=== PATIENT | male | born 1955 | race Caucasian/White ===

== ENCOUNTER → 2017-11-03 13:22 | Outpatient (CLI) | payer MEDICARE, SELFPAY | PROVIDERS: Family Provider Student in an Organized Health Care Education/Training Program; PCP Student in an Organized Health Care Education/Training Program; Visit Provider Anesthesiology | DX: M54.12 Radiculopathy, cervical region (principal) | CPT/HCPCS: 72125 ==

== ENCOUNTER 2018-06-04 12:55 | Emergency (ER) | payer MEDICARE, SELFPAY ==
[2018-06-04 13:00] VITALS: BP 148/99; PULSE 127; RESP 12; TEMP 37.4; O2SAT 94; BMI 45.8
[2018-06-04 13:05] VITALS: O2SAT 98
--- NOTE | 2018-06-04 13:55 | EKG12_ITS ---
Test Reason : CP Blood Pressure : / mmHG Vent. Rate : 123 BPM Atrial Rate : 123 BPM P-R Int : 168 ms QRS Dur : 098 ms QT Int : 302 ms P-R-T Axes : 027 -42 062 degrees QTc Int : 432 ms Sinus tachycardia Left axis deviation Left ventricular hypertrophy Nonspecific ST Segment Abnormality Abnormal ECG Confirmed by CONCHITA WEISS, LAMONTE ([id number]), editor publications SILVIO CARDENAS ([id number]) on 06/07/2018 1:43:31 PM Referred By: TANYA Confirmed By:LAMONTE ARANGO MD
--- NOTE | 2018-06-04 13:56 | ED.VIS.GEN ---
History of Present Illness Chief Complaint: Chest Pain Informant: Patient Onset: Days - 2 Context: Gradual Onset Timing: Continuous Quality: heavy Location: right chest, radiates into right upper back Current Severity: Moderate Maximum Severity: Moderate Worsened by: nothing in particular; nonpleuritic, no worse w/ movement or exertion Relieved by: nothing Associated Symptoms: see below Narrative: Patient states he has had these symptoms of right upper chest discomfort into his back off and on since October of last year which is over 6 months. More constant for the past 2 days. This morning he has noticed that his chronic sciatica pain is significantly worse, and his spinal cord stimulator is not functioning properly. His stimulator is implanted in his low back and has been there for years, and has helped to keep his sciatica discomfort tolerable. Last night he has a remote control that he used to check it and it was working fine. This morning he notices sciatica pain was a lot worse especially on the right, so he checked it again and there was a picture of a doctor and it was advising him to have it evaluated immediately. He states the discomfort in his right upper back, far away from his stimulator, felt burning and he was wondering if it is related to his stimulator. He states his heart rate is always around 60 and it has been fast. His blood pressure is up and it is usually not. He denies any palpitations, loss of consciousness, shortness of breath. No leg pain or swelling. No history of DVT or PE. No recent hospitalization, surgery, although he has had many surgeries in the past. No recent long travel or immobilization. - Past Medical History (1) Sciatica Status: Chronic (2) Chronic low back pain Status: Chronic Past Medical History - Allergies and Home Meds Allergies/Adverse Reactions: Allergies acetaminophen [From Tylenol] Allergy (Verified 06/04/18 13:00) Shortness of breath adhesive tape Allergy (Verified 06/04/18 13:00) Rash clarithromycin Allergy (Verified 06/04/18 13:00) Rash codeine Allergy (Verified 06/04/18 13:00) Anaphylaxis hydrocodone [From Vicodin] Allergy (Verified 06/04/18 13:00) Anaphylaxis levofloxacin [From Levaquin] Allergy (Verified 06/04/18 13:00) Rash sulfadiazine Allergy (Verified 06/04/18 13:00) Shortness of breath celecoxib [From Celebrex] Adverse Reaction (Verified 06/04/18 13:00) Upset Stomach Primary Care Physician: Sherman Paiz DO [Primary Care Provider] - Surgical History: - - back -- many. lumbar spinal cord stimulator placement. Smoking Status: Never smoker Review of Systems General: Denies: Chills, Fever, Sweats Eyes: Denies: Visual changes - bilaterally, Diplopia ENT: Denies: Rhinorrhea, Sore throat Cardiovascular: Reports: Chest pain. Denies: Palpitations, Heart racing Respiratory: Reports: Dyspnea - at times, wheezing, Cough. Denies: Sputum Gastrointestinal: Denies: Abdominal pain, Nausea, Vomiting, Diarrhea, Melena, Hematochezia Genitourinary: Denies: Dysuria, Hematuria, Frequency Musculoskeletal: Reports: Back pain, Extremity Pain - chronic BLE. Denies: Neck pain, Swelling Skin: Denies: Rash, Wounds Neurological: Denies: Headache, Weakness, Numbness Physical Exam Vital Signs/Narrative: Vital Signs Temp Pulse Resp BP Pulse Ox 06/04/18 13:05 98 06/04/18 13:00 99.4 F H 127 H 12 148/99 H 94 Inital Vital Signs reviewed: Yes General: Well nourished, Well developed, No Acute Distress Head: Normocephalic, Atraumatic Eyes: Perrl, EOMI ENT: Moist mucous membranes, No rhinorrhea Neck: Supple, Nontender Cardiovascular: Regular rate, Regular rhythm, No murmurs, Normal S1, Normal S2, Tachycardia Respiratory: No distress, CTA bilaterally, Chest nontender, Diminished - throughout, symmetric Abdomen: Soft, Nontender, Nondistended, Normal bowel sounds Back: Nontender, Normal Inspection, - - nontender over left low back stimulator area; no cellulitis present. multiple well-healed surgical scars.. Negative for: Spinal tenderness Extremities: Nontender, No edema Skin: Normal color, No rash, No Trauma Neurological: Alert, Oriented x3, Cranial nerves II-XII grossly intact, Normal Strength, Normal Sensation Psychological: Normal affect, Normal Mood Diagnostic/Tx/Re-eval Impressions Chest X-Ray 06/04/18 14:00 IMPRESSION: Mild cardiomegaly. Electronically Signed: Naveen Quevedo, at 14:22 EDT , Service support , 06/04/18 14:00 Chest 1 View (Portable) [RAD] Stat Laboratory Results 06/04/18 06/04/18 06/04/18 13:20 13:20 13:20 WBC 7.1 RBC 4.70 Hgb 13.6 Hct 41.1 MCV 87.4 MCH 28.9 MCHC 33.1 RDW 13.9 RDW Differential 44.2 H Plt Count 286 MPV 10.2 Immature Gran % (Auto) 0.600 Neut % (Auto) 68.3 Lymph % (Auto) 18.9 L [place] % (Auto) 11.3 H Eos % (Auto) 0.6 Baso % (Auto) 0.3 Absolute Neuts (auto) 4.9 Absolute Lymphs (auto) 1.35 Total Counted Not Reportable D-Dimer Quant (PE/DVT) 0.45 Sodium 140 Potassium 3.2 L Chloride 105 Carbon Dioxide 25.0 Anion Gap 10 BUN 19 H Creatinine 1.28 Estim Creat Clear Calc 55.38 Est GFR (MDRD) Af Amer 74 Est GFR (MDRD) Non-Af 61 BUN/Creatinine Ratio 14.8 Glucose 122 H Lactic Acid Calcium 9.9 Troponin I < 0.015 06/04/18 14:20 WBC RBC Hgb Hct MCV MCH MCHC RDW RDW Differential Plt Count MPV Immature Gran % (Auto) Neut % (Auto) Lymph % (Auto) [place] % (Auto) Eos % (Auto) Baso % (Auto) Absolute Neuts (auto) Absolute Lymphs (auto) Total Counted D-Dimer Quant (PE/DVT) Sodium Potassium Chloride Carbon Dioxide Anion Gap BUN Creatinine Estim Creat Clear Calc Est GFR (MDRD) Af Amer Est GFR (MDRD) Non-Af BUN/Creatinine Ratio Glucose Lactic Acid 1.1 Calcium Troponin I - Rhythm Strip Rhythm Strip: Sinus Tach Rate: 120 Ectopy: None - EKG Initial EKG Interpretation: No Acute Injury Pattern, Sinus Tachycardia, - - LAD Prior: No Prior - Medical Decision Making Labs are reassuring, showing normal troponin and negative d-dimer, ruling out PE as etiology for his chest discomfort today. Chest x-ray shows no acute infiltrates or disease. With fluids and Toradol he had some mild improvement in his discomfort and his tachycardia improved. His EKG shows a left axis but we do not have an old EKG to compare to. With a negative troponin and 2 days of pain, at least, I do not think he needs to be admitted to rule out acute coronary syndrome. Furthermore, his symptoms are atypical for being cardiac. He is a very poor historian and has trouble answering questions directly, eventually tells me that he has had a cough for 2-3 months, he saw a urgent care a couple months ago and was not put on antibiotic but the breathing treatment helped. He states occasionally he is wheezing and feels a little like that now, I gave him an albuterol treatment, he states that helped his breathing, which was not bad to begin with, he still has a chest discomfort. He states he feels lumps under the skin in this area and those feel like the etiology of his discomfort. When he bends forward he can feel the more prominently. When asked if he has COPD, he states he thinks he does but he is not sure. He has an albuterol inhaler at home that he has been using on occasion, as he did yesterday which helped his dyspnea when he does it. I think it is reasonable to send him home on an antibiotic to cover for atypicals, short course of prednisone, and prescribed a new albuterol inhaler. I discussed his spinal stimulator with Dr. Quinn, he advises me to reassure the patient and advised him to call for an appointment time to follow-up on Thursday for further evaluation in the office and to turn it off for now. I relayed this to the patient. He is comfortable with this overall plan of following up with his primary care doctor and his pain management doctor. ED Disposition - Plan for ED Patient: Disposition: Home or Assisted Living Diagnosis: Lower respiratory infection, Malfunction of spinal cord stimulator, Atypical chest pain, Chronic low back pain Instructions: ED Chest Pain NonCardiac, ED COPD Flare Prescriptions: Albuterol Inhaler [Ventolin Hfa] 1 - 2 puff INHALATION Q4H PRN PRN #1 inhaler PRN Reason: Wheezing Azithromycin [Zithromax Z-Umair] 250 mg PO UD #1 box Prednisone [Deltasone] 40 mg PO DAILY #10 tab Referrals: Sherman Paiz DO [Primary Care Provider] - 1 Week if not improving Jesús Quinn MD [STAFF PHYSICIAN] - 06/07/18 (call for appt time)
[2018-06-04 14:00] VITALS: BP 138/102; PULSE 118; RESP 20; O2SAT 97
--- NOTE | 2018-06-04 14:00 | RAD_ITS ---
STUDY: X-RAY CHEST REASON FOR EXAM: Male, 62 years old. Chest pain. TECHNIQUE: Single AP portable view of the chest. COMPARISON: None. FINDINGS: EKG electrodes are seen. Electrodes from a spinal stimulator are seen with the tip in the region of the T7-T8 vertebral level. The lungs are clear and expanded. There is no demonstrated pleural abnormality. There is mild cardiac enlargement. Normal mediastinum and cliff. Normal visualized pulmonary arteries. There is atherosclerotic tortuosity of the aortic arch and descending thoracic aorta. Normal visualized thoracic spine. Normal visualized ribs, clavicles, and shoulders. There is no demonstrated abnormality of the visualized soft tissue structures of the upper abdomen. RAD/Chest 1 View (Portable) IMPRESSION: Mild cardiomegaly. Electronically Signed: Naveen Quevedo, at 14:22 EDT , Service support ,
[2018-06-04 14:24] LABS: Absolute Lymphocyte Count 1.35 X10^3/ul (0.83-4.51); Absolute Neutrophil Count 4.9 X10^3/uL (2.0-7.7); Basophil# 0.02 X10^3/uL; Basophil% 0.3 % (0-1); Eosinophil# 0.04 X10^3/uL; Eosinophils% 0.6 % (0-5); Hematocrit 41.1 % (40-54); Hemoglobin 13.6 g/dl (13.0-16.5); Lymphocyte # 1.35 X10^3/ul (4.0); Lymphocyte % 18.9 % (19-41); Mean Corp Hgb Conc 33.1 g/gl (32-36); Mean Corpuscular Hgb 28.9 pg (27.0-32.0); Mean Corpuscular Volume 87.4 fL (80-94); Mean Platelet Vol. 10.2 fl (6.2-12.0); Monocyte# 0.81 X10^3/uL; Monocyte% 11.3 % (0-10); Neutrophil # 4.88 X10^3/uL (2.7-7.7); Neutrophil % 68.3 % (47-70); Platelet Count 286 K/mm3 (150-450); RBC Distribution Width CV 13.9 % (11.6-14.6); RBC Distribution Width SD 44.2 fl (35.1-43.9); White Blood Count 7.1 K/mm3 (4.4-11.0)
[2018-06-04 14:26] LABS: POSITIVE COUNT NO; POSITIVE DIFFERENTIAL NO; POSITIVE MORPHOLOGY NO
[2018-06-04 14:34] LABS: D-Dimer Quantitative (DVT/PE) 0.45 FEU/ug/m (0.27-0.49)
[2018-06-04] MEDS: 0.9% Normal Saline 1,000 ML 999 ML IV (14:34)
[2018-06-04] MEDS: Ketorolac 15 MG/ML Vial IV (14:34)
[2018-06-04 14:40] LABS: BUN 19 mg/dL (7-18); Creatinine, Serum 1.28 mg/dL (0.70-1.30); Glucose 122 mg/dL (74-106)
[2018-06-04 14:41] LABS: Anion Gap 10 (5-15); BUN/Creat Ratio 14.8 RATIO (10-20); Calcium,Total 9.9 mg/dL (8.5-10.1); Chloride 105 mmol/L (98-107); EST Glomerular Filtration Rate 61 mL/min (>60); Est Glom Filt Rate - Afr Amer 74 mL/min (>60); Estimated Creatinine Clearance 55.38 ml/min; Potassium 3.2 mmol/L (3.5-5.1); Sodium Level 140 mmol/L (136-145)
[2018-06-04 14:57] LABS: Lactic Acid 1.1 mmol/L (0.4-2.0)
[2018-06-04 15:00] VITALS: BP 161/106; PULSE 113; RESP 18; O2SAT 98
[2018-06-04 15:47] VITALS: PULSE 108; RESP 16
[2018-06-04] MEDS: Albuterol 2.5 MG/3 ML VIAL.NEB. INHALATION (15:47)
[2018-06-04 16:31] VITALS: BP 149/93; PULSE 107; RESP 16; RESP 18; O2SAT 96
== END 2018-06-04 16:33 | disposition home or self-care (01) ==
PROVIDERS: Emergency Provider Emergency Medicine; Family Provider Student in an Organized Health Care Education/Training Program; PCP Student in an Organized Health Care Education/Training Program
DX: J22 Unspecified acute lower respiratory infection (principal); T85.113A Breakdown (mechanical) of implanted electronic neurostimulator, generator, initial encounter; Y83.8 Other surgical procedures as the cause of abnormal reaction of the patient, or of later complication, without mention of misadventure at the time of the procedure; R07.89 Other chest pain; M54.5 Low back pain; G89.29 Other chronic pain
CPT/HCPCS: 71045; 80048; 83605; 84484; 85025; 85379; 87040; 93005; 94640; 96361; 96374; 99285; J7030; A4216

== ENCOUNTER 2018-08-06 09:58 | Day surgery (SDC) | payer OTHER, SELFPAY ==
[2018-08-06 10:17] VITALS: BP 159/83; PULSE 61; RESP 16; TEMP 37.1; O2SAT 98; BMI 43.7
[2018-08-06 10:38] LABS: Potassium 3.8 mmol/L (3.5-5.1)
--- NOTE | 2018-08-06 11:25 | RAD_ITS ---
PROCEDURE: Spinal cord stimulator battery revision. DATE OF EXAMINATION: August 06, 2018 INDICATION: Male, 62 years old. Chronic back pain. FLUOROSCOPY TIME (if supplied): (0:06) minutes/seconds Single coned down view of the dorsal lumbar junction was obtained intraoperatively. RAD/Spine 1 View Any Level IMPRESSION: Intraoperative imaging provided for spinal cord stimulator battery revision. Electronically Signed: Naveen Quevedo, at 15:49 EDT , Service support ,
[2018-08-06] MEDS: Bupiv/Epi 0.25% 30 ML Vial (13:22)
[2018-08-06] MEDS: Cefazolin 2 GM in 0.9% Normal Saline 100 ML IV (13:49)
[2018-08-06 14:30] VITALS: BP 121/80; BP 159/83; PULSE 80; RESP 16; TEMP 36.5; O2SAT 97
[2018-08-06 14:35] VITALS: BP 126/82; BP 159/83; PULSE 78; RESP 16; O2SAT 97
[2018-08-06 14:40] VITALS: BP 135/82; BP 159/83; PULSE 74; RESP 16; O2SAT 100
[2018-08-06 14:45] VITALS: BP 145/93; BP 159/83; PULSE 73; RESP 16; TEMP 36.2; O2SAT 99
[2018-08-06 15:23] VITALS: BP 159/83
== END 2018-08-06 15:58 | disposition home or self-care (01) ==
LOC: SDC 10:01 → AC 10:03
PROVIDERS: Anesthesiology; Family Provider Student in an Organized Health Care Education/Training Program; PCP Student in an Organized Health Care Education/Training Program; Referring Provider Anesthesiology Pain Medicine; Visit Provider Anesthesiology Pain Medicine
PROC: (CPT 63688; principal; 2018-08-06 11:10)
DX: G89.29 Other chronic pain (principal); J45.909 Unspecified asthma, uncomplicated; I10 Essential (primary) hypertension
CPT/HCPCS: 63685; 36415; 72020; 76000; 84132; C1820; J7120

== ENCOUNTER 2021-02-15 08:50 | Emergency (ER) | payer MEDICARE, SELFPAY ==
[2021-02-15] VITALS (7 sets, daily range): BP systolic 143–195; BP diastolic 83–105; PULSE 81–89; RESP 12–16; TEMP 36.9; O2SAT 96–98; BMI 40.5
--- NOTE | 2021-02-15 08:57 | EKG12_ITS ---
Test Reason : CP Blood Pressure : / mmHG Vent. Rate : 086 BPM Atrial Rate : 086 BPM P-R Int : 166 ms QRS Dur : 108 ms QT Int : 348 ms P-R-T Axes : 044 -43 053 degrees QTc Int : 416 ms Normal sinus rhythm Left axis deviation Abnormal ECG Confirmed by TONYA WEISS, SCARLET ([id number]), international editorial producer SILVIO CARDENAS ([id number]) on 02/18/2021 9:38:28 AM Referred By: EVENS Confirmed By:SCARLET CASTANEDA MD
--- NOTE | 2021-02-15 08:57 | RAD_ITS ---
STUDY: X-RAY CHEST REASON FOR EXAM: Male, 65 years old. Chest pain TECHNIQUE: Single AP portable view of the chest. COMPARISON: Comparison is made with prior study 06/04/2018. FINDINGS: EKG electrodes are seen. The lungs are clear and expanded. There is no demonstrated pleural abnormality. There is borderline cardiomegaly. Normal mediastinum and cliff. Normal visualized pulmonary arteries. Normal visualized aortic arch and descending thoracic aorta. Normal visualized thoracic spine. Normal visualized ribs, clavicles, and shoulders. There is no demonstrated abnormality of the visualized soft tissue structures of the upper abdomen. RAD/Chest 1 View (Portable) IMPRESSION: Borderline cardiomegaly. Electronically Signed: Naveen Quevedo MD at 9:57 EST , Service support ,
[2021-02-15 09:04] LABS: Absolute Lymphocyte Count 1.23 X10^3/uL (0.83-4.51); Absolute Neutrophil Count 7.8 X10^3/uL (2.0-7.7); Basophil# 0.04 X10^3/uL; Basophil% 0.4 % (0-1); Eosinophil# 0.03 X10^3/uL; Eosinophils% 0.3 % (0-5); Hematocrit 43.5 % (40-54); Hemoglobin 14.1 g/dL (13.0-16.5); Lymphocyte # 1.23 X10^3/ul (0.83-4.51); Lymphocyte % 12.6 % (19-41); Mean Corp Hgb Conc 32.4 g/dL (32-36); Mean Corpuscular Hgb 28.3 pg (27.0-32.0); Mean Corpuscular Volume 87.3 fL (80-94); Monocyte# 0.63 X10^3/uL; Monocyte% 6.4 % (0-10); NRBC Flagged by Analyzer 0 % (0-5); Neutrophil # 7.79 X10^3/uL (2.7-7.7); Neutrophil % 79.8 % (47-70); Platelet Count 284 K/mm3 (150-450); RBC Distribution Width SD 44.9 fl (35.1-43.9); Red Blood Count 4.98 M/mm3 (4.6-6.2); White Blood Count 9.8 K/mm3 (4.4-11.0)
[2021-02-15 09:26] LABS: Anion Gap 8 (5-15); BUN 17 mg/dL (7-18); BUN/Creat Ratio 14.2 RATIO (10-20); Calcium,Total 9.9 mg/dL (8.5-10.1); Chloride 104 mmol/L (98-107); EST Glomerular Filtration Rate 65 mL/min (>60); Est Glom Filt Rate - Afr Amer 79 mL/min (>60); Estimated Creatinine Clearance 56.86 ml/min; Glucose 136 mg/dL (74-106); Potassium 3.3 mmol/L (3.5-5.1); Sodium Level 137 mmol/L (136-145); Troponin-I HS 14 pg/mL (3.0-78.0)
--- NOTE | 2021-02-15 09:41 | VDLE_ITS ---
Reason For Study: Pain RIGHT GSV is normal. CFV is compressible, spontaneous, phasic, competent and demonstrates normal augmentation. FV is compressible, spontaneous, phasic, competent and demonstrates normal augmentation. POP V is compressible, spontaneous, phasic, competent and demonstrates normal augmentation. T/P Trunk is compressible. PTV is compressible. RT PerV is compressible. Procedure This is a venous duplex using B-mode, color flow and spectral Doppler. Exam performed portable in ED. A preliminary report was called and/or faxed to Dr. Monsivais. VL/Venous Duplex US, Unilateral Interpretation Summary There is no evidence of right lower extremity deep vein thrombosis. Right great saphenous vein appears patent and compressible segmentally. Ordering Physician: Zackery Monsivais Referring Physician: Sherman Paiz Performed By: Dea Saunders, JOSAFAT, RVT
[2021-02-15] MEDS: Morphine 4 MG/ML Syringe IV (09:48)
--- NOTE | 2021-02-15 10:33 | ED.VIS.CHEST ---
HPI History of Present Illness Chief Complaint: Chest Pain Narrative Narrative: Patient presents for evaluation of his right leg pain which is an acute on chronic issue. He describes this as a 100 out of 100 pain. He denies any new trauma. He states he sees pain management is supposed to get a spinal stimulator. He states is not on any narcotics at home. Patient denies any new trauma. No DVT/PE risk factors. He notes that it is only painful in the anterior portion of the right thigh. He notes no swelling. He states that aside from this he started having chest pain about 6:00 this morning which feels like pressure. He denies lightheadedness or dizziness. He denies fever, cough, chills. He denies shortness of breath. PFSH PFSH Home Medications apple cider vinegar 300 mg PO DAILY 08/05/18 [History Last Taken Unknown] bee pollen 550 mg PO DAILY 08/05/18 [History Last Taken Unknown] calcium polycarbophil [Fiber Tabs] 625 mg PO DAILY 08/05/18 [History Last Taken Unknown] cranberry fruit 400 mg PO DAILY 08/05/18 [History Last Taken Unknown] ginseng 100 mg PO DAILY 08/05/18 [History Last Taken Unknown] hydrochlorothiazide 25 mg PO DAILY 08/05/18 [History Last Taken Unknown] losartan 100 mg PO DAILY 08/05/18 [History Last Taken 08/06/18 08:00] lycopene 10 mg PO DAILY 08/05/18 [History Last Taken Unknown] metoprolol succinate [Toprol Xl] 50 mg PO DAILY 08/05/18 [History Last Taken 08/06/18 08:00] tizanidine 4 mg PO DAILY 08/05/18 [History Last Taken Unknown] tramadol 50 mg PO Q6H PRN PRN 08/05/18 [History Last Taken Unknown] Allergy/AdvReac Type Severity Reaction Status Date / Time acetaminophen [From Tylenol] Allergy Shortness Verified 02/15/21 08:54 of breath adhesive tape Allergy Rash Verified 02/15/21 08:54 clarithromycin Allergy Rash Verified 02/15/21 08:54 codeine Allergy Anaphylaxis Verified 02/15/21 08:54 hydrocodone [From Vicodin] Allergy Anaphylaxis Verified 02/15/21 08:54 levofloxacin [From Levaquin] Allergy Rash Verified 02/15/21 08:54 sulfadiazine Allergy Shortness Verified 02/15/21 08:54 of breath celecoxib [From Celebrex] AdvReac Upset Verified 02/15/21 08:54 Stomach Social History Smoking Status: Never smoker ROS ROS ED Constitutional Constitutional ED: Denies chills or fever(s) Eyes Eyes: Denies blurry vision or change in vision ENT ENT ED: Denies rhinorrhea or sore throat Cardiovascular Cardiovascular: Reports as per HPI Respiratory/Chest Respiratory/Chest: Denies cough or dyspnea Gastrointestinal Gastrointestinal: Denies abdominal pain, nausea or vomiting Genitourinary Genitourinary ED: Denies dysuria or hematuria Musculoskeletal Musculoskeletal: Reports other Details: Right thigh pain Integumentary Denies Abrasions or rash Neurologic Neurologic: Denies headache(s) or weakness Psychiatric Psychiatric: Denies anxiety or depression EXAM Physical Exam Const Vital Signs: 02/15/21 08:51 02/15/21 08:53 02/15/21 08:55 Temperature 98.5 F 98.5 F Temperature Source Oral Oral Pulse Rate 89 89 Respiratory Rate 14 14 Respiratory Effort Normal Non-Labored Blood Pressure 195/105 H 195/105 H Blood Pressure Mean 135 135 Pulse Ox 98 98 Oxygen Delivery Method Room Air Room Air 02/15/21 09:08 02/15/21 09:58 02/15/21 10:14 Temperature Temperature Source Pulse Rate 81 81 Respiratory Rate 13 12 Respiratory Effort Blood Pressure 156/84 H 156/84 H Blood Pressure Mean 108 108 Pulse Ox 98 96 96 Oxygen Delivery Method Room Air Room Air Room Air 02/15/21 11:44 02/15/21 12:05 Temperature Temperature Source Pulse Rate 82 81 Respiratory Rate 16 16 Respiratory Effort Blood Pressure 171/93 H 143/83 H Blood Pressure Mean 119 Pulse Ox 97 98 Oxygen Delivery Method Room Air Positive well nourished General Appearance ED: NAD; Negative for pallor HEENT Reports moist mucous membranes normocephalic and atraumatic Eyes PERRL and EOMs intact bilaterally Resp normal respiratory effort Effort and Inspection: respiratory distress Cardio regular rate and regular rhythm Extremity Extremity Narrative: Tenderness to palpation over the anterior right thigh. There is no swelling, deformity, ecchymosis, rash. No cords palpated in the right lower extremity Neuro oriented x3 and CN's II-XII intact bilaterally Sensorium / Orientation: awake and alert Psych mental status grossly normal Skin General Skin Exam: Negative for jaundice or pallor Heart Score History: Slightly/Non-Suspicious ECG: Normal Age: >45 - <65 years Risk Factors: 1 or 2 Risk Factors Troponin: </= Normal Limit Score: 2 MDM MDM MDM Narrative Medical decision making narrative: Patient presenting with chest pain. His EKG is sinus rhythm with a ventricular rate of 86 bpm on my interpretation. Chest x-ray on my interpretation shows no acute cardiopulmonary process but the cardiomegaly is noted. Radiologist does agree. CBC is unremarkable. BMP shows slight hypokalemia 3.3. Patient had 2 high-sensitivity troponins which were both 14 2 hours apart. Because of the patient's right leg pain I did obtain an ultrasound of the right lower extremity and there is no acute DVT found on this. After long discussion it was determined that the patient just started wearing lifted shoes because his left leg is longer than his right leg. He believes this is what is causing his pain in his right hip and right thigh. He has no traumatic injury to the area and I do not believe he needs an x-ray. Patient is unsure if the person he saw to give him orthotics in his shoes was orthopedic or podiatry. He states he does have follow-up with this person however. Patient also has follow-up with pain management. I recommended that he follow-up with both. I found no evidence of DVT or PE and he has no risk factors, and in addition to this is cardiac work-up is negative. Patient will be discharged home in stable condition. Impression: 1. Muscle strain 2. Chest pain noncardiac Lab Data Labs: Laboratory Results - last 24 hr 02/15/21 02/15/21 02/15/21 08:55 08:55 10:50 WBC 9.8 RBC 4.98 Hgb 14.1 Hct 43.5 MCV 87.3 MCH 28.3 MCHC 32.4 RDW Std Deviation 44.9 H RDW Coeff of John 14.0 Plt Count 284 MPV 10.0 Immature Gran % (Auto) 0.500 Neut % (Auto) 79.8 H Lymph % (Auto) 12.6 L [place] % (Auto) 6.4 Eos % (Auto) 0.3 Baso % (Auto) 0.4 Absolute Neuts (auto) 7.8 H Absolute Lymphs (auto) 1.23 Nucleated RBC % 0 Sodium 137 Potassium 3.3 L Chloride 104 Carbon Dioxide 25.0 Anion Gap 8 BUN 17 Creatinine 1.20 Estim Creat Clear Calc 56.86 Est GFR (MDRD) Af Amer 79 Est GFR (MDRD) Non-Af 65 BUN/Creatinine Ratio 14.2 Glucose 136 H Calcium 9.9 Troponin I High Sens 14 14 Radiography Diagnostic Testing: Clinical Impression(s) from Imaging Studies Chest X-Ray 02/15/21 08:57 IMPRESSION: Borderline cardiomegaly. Electronically Signed: Naveen Quevedo MD at 9:57 EST , Service support , Venous Doppler Study 02/15/21 09:41 Interpretation Summary There is no evidence of right lower extremity deep vein thrombosis. Right great saphenous vein appears patent and compressible segmentally. Ordering Physician: Zackery Monsivais Referring Physician: Sherman Paiz Performed By: Dea Saunders, JOSAFAT, RVT Discharge Plan Triage Chief Complaint: Chest Pain ED Provider: Zackery Monsivais Dx/Rx/DC Orders Instructions: ED Chest Pain, Noncardiac, ED Muscle Strain, Extremity Prescriptions: No Action ginseng 100 MG capsule 100 mg PO DAILY RF: 0 tizanidine 4 MG tablet 4 mg PO DAILY RF: 0 metoprolol succinate [Toprol XL] 50 MG tablet extended release 24 hr 50 mg PO DAILY RF: 0 tramadol 50 MG tablet 50 mg PO Q6H PRN PRN (Reason: Pain) RF: 0 calcium polycarbophil [Fiber-Tabs] 625 MG tablet 625 mg PO DAILY RF: 0 hydrochlorothiazide 25 MG tablet 25 mg PO DAILY RF: 0 losartan 100 MG tablet 100 mg PO DAILY RF: 0 lycopene 10 MG capsule 10 mg PO DAILY RF: 0 apple cider vinegar 300 MG tablet 300 mg PO DAILY RF: 0 cranberry fruit 400 MG tablet 400 mg PO DAILY RF: 0 bee pollen 550 MG capsule 550 mg PO DAILY RF: 0 Primary Care Provider: Sherman Paiz Referrals: Sherman Paiz DO [Primary Care Provider] - Disposition Disposition: Home, Self Care Discharge Date/Time: 02/15/21 12:06
[2021-02-15 11:15] LABS: Troponin-I HS 14 pg/mL (3.0-78.0)
== END 2021-02-15 12:06 | disposition home or self-care (01) ==
PROVIDERS: Emergency Provider Student in an Organized Health Care Education/Training Program; PCP Student in an Organized Health Care Education/Training Program
DX: R07.89 Other chest pain (principal); I51.7 Cardiomegaly; Z79.1 Long term (current) use of non-steroidal anti-inflammatories (NSAID)
CPT/HCPCS: 36415; 71045; 80048; 84484; 85025; 93005; 93971; 96374; 99284; A4216